=== PATIENT | male | born 1995 | race African-American/Black ===

== ENCOUNTER 2016-09-26 04:54 | Emergency (ER) | payer BC, MEDICAID ==
[~2016-09-26] VITALS: Ht 182.9 cm; Wt 79.5 kg
[~2016-09-26 04:54] MED LIST: NO HOME MEDICATIONS; NORCO 325 MG-51 TAB PO
[2016-09-26 04:57] VITALS: BP 139/83; TEMP 98
[2016-09-26] MEDS ORDERED: PERCOCET 325 MG1 TA2 PO (05:28)
[2016-09-26] MEDS ORDERED: ULTRAM 50MG TAB50 MG PO (05:28)
[2016-09-26 05:39] VITALS: PULSE 69
== END 2016-09-26 05:40 | disposition home or self-care (01) ==
LOC: COL.ER 04:54
DX: M54.5 Low back pain (principal)
CPT/HCPCS: J1885

== ENCOUNTER 2018-01-31 12:01 | Emergency (ER) | payer BC, MEDICAID ==
[~2018-01-31] VITALS: Ht 185.4 cm; Wt 80.5 kg
[~2018-01-31 12:01] MED LIST changes: +PERCOCET 325 MG1 TA2 PO; +ULTRAM 50MG TAB50 MG PO
[2018-01-31 12:14] VITALS: BP 132/79; TEMP 99.3
[2018-01-31] MEDS ORDERED: FLEXERIL 1010 MG/TAB PO (14:12)
[2018-01-31] MEDS ORDERED: NORCO 325 MG-51 TAB PO (14:17)
[2018-01-31 14:21] VITALS: PULSE 60
== END 2018-01-31 14:23 | disposition home or self-care (01) ==
LOC: COL.ER 12:01
DX: R07.89 Other chest pain (principal)
CPT/HCPCS: J1885